=== PATIENT | female | born 1990 | race American Indian/Alaskan Native ===

== ENCOUNTER 2018-03-24 23:46 | Inpatient (IN) | payer BC ==
[2018-03-25 02:24] LABS: INR 0.96 (0.87-1.13)
[2018-03-25 02:34] LABS: Alanine Aminotransferase 94 units/L (7-56); Albumin 3.9 g/dL (3.9-5); BUN/Creatinine Ratio 9; Blood Urea Nitrogen 8 mg/dL (7-17); Hemolysis Index 12
--- NOTE | 2018-03-25 02:40 | Emergency Department Report ---
ED Fever HPI - General Chief Complaint: Fever Stated Complaint: FEVER/HEADACHE Time Seen by Provider: 03/25/18 02:24 ED Review of Systems ROS: Stated complaint: FEVER/HEADACHE Other details as noted in HPI ED Past Medical Hx - Past Medical History Previous Medical History?: Yes Hx Diabetes: Yes - Surgical History Past Surgical History?: No - Social History Smoking Status: Current Every Day Smoker Substance Use Type: None ED Physical Exam - General Limitations: No Limitations ED Course Vital Signs 03/25/18 00:30 Temperature 99.5 F Pulse Rate 99 H Blood Pressure 94/52 O2 Sat by Pulse 18 L Oximetry Critical care attestation.: If time is entered above; I have spent that time in minutes in the direct care of this critically ill patient, excluding procedure time. ED Disposition Condition: Stable Referrals: PRIMARY CARE [Primary Care Provider] - 3-5 Days
[2018-03-25 02:42] LABS: Basophils % (Auto) 0.5 % (0.0-1.8); Eosinophils % (Auto) 0.3 % (0.0-4.3); Hematocrit 37.9 % (30.3-42.9); Hemoglobin 12.2 gm/dl (10.1-14.3); Lymphocytes # (Auto) 0.4 K/mm3 (1.2-5.4); Lymphocytes % (Auto) 7.3 % (13.4-35.0); Mean Corpuscular HGB Conc 32 % (30-34); Mean Corpuscular Hemoglobin 28 pg (28-32); Mean Corpuscular Volume 87 fl (79-97); Monocytes # (Auto) 0.5 K/mm3 (0.0-0.8); Monocytes % (Auto) 9.6 % (0.0-7.3); Red Blood Count 4.37 M/mm3 (3.65-5.03); Red Cell Distribution Width 16.3 % (13.2-15.2)
[2018-03-25 02:47] LABS: Platelet Count 62 K/mm3 (140-440)
[2018-03-25] MEDS ORDERED: NACL 0.9% 1000 ML IV ONE (03:16)
[2018-03-25] MEDS ORDERED: HumuLIN R IV ONE ×2 (03:17→05:29)
--- NOTE | 2018-03-25 03:56 | XRay Report ---
FINAL REPORT EXAM: XR CHEST 1V AP HISTORY: possible Sepsis TECHNIQUE: A portable semi-upright view the chest was submitted. FINDINGS: The heart size and vascularity appear normal. The lungs are clear. Pleural fluid is not seen. The bones and soft tissues do not show any acute changes. IMPRESSION: No acute cardiopulmonary process.
--- NOTE | 2018-03-25 03:59 | Emergency Department Report ---
ED Fever HPI - General Chief Complaint: Fever Stated Complaint: FEVER/HEADACHE Time Seen by Provider: 03/25/18 02:24 Source: patient, old records (no previous record) Exam Limitations: no limitations - History of Present Illness Initial Comments: 27-year-old female with a past medical history of insulin-dependent diabetes and biliary atresia (followed at [facility]) presents to the hospital with complaints of nausea, fever, generalized body aches, and headache. Patient did not take her temperature but states she felt hot. She also complains of pain chest. No complaints of vomiting, diarrhea, dysuria, or hematuria. Patient states she has recent hospital visits but this is her first visit here as per medical record review. ED Review of Systems ROS: Stated complaint: FEVER/HEADACHE Other details as noted in HPI Comment: All other systems reviewed and negative ED Past Medical Hx - Past Medical History Previous Medical History?: Yes Hx Diabetes: Yes - Surgical History Past Surgical History?: No - Social History Smoking Status: Current Every Day Smoker Substance Use Type: None ED Physical Exam - General Limitations: No Limitations - Other Other exam information: General: No limitations, patient is alert in no acute distress Head exam: Atraumatic, normocephalic Eyes exam:pupils equal reactive to light ENT: Moist mucous membrane, normal oropharynx Neck exam: Normal inspection, full range of motion, no meningismus nontender Respiratory exam: Clear to auscultation bilateral, no wheezes, rales, crackles Cardiovascular: Normal rate and rhythm, normal heart sounds Abdomen: Soft, nondistended, right upper quadrant and left lower quadrant tenderness, with normal bowel sounds, no rebound, or guarding Extremity: Full range of motion normal inspection no deformity Back: Normal Inspection, full range of motion, no tenderness Neurologic: Alert, oriented x3, cranial nerves intact, no motor or sensory deficit Psychiatric: normal affect, normal mood Skin: Warm, dry, intact ED Course Vital Signs 03/25/18 03/25/18 03/25/18 00:03 00:30 03:34 Temperature 102.2 F H 99.5 F Pulse Rate 102 H 99 H Respiratory 16 Rate Blood Pressure 81/41 94/52 Blood Pressure [Left] O2 Sat by Pulse 97 18 L 99 Oximetry 03/25/18 04:03 Temperature 100.1 F H Pulse Rate 100 H Respiratory 18 Rate Blood Pressure Blood Pressure 95/59 [Left] O2 Sat by Pulse 100 Oximetry ED Medical Decision Making - Lab Data Result diagrams: 03/25/18 00:58 03/25/18 00:58 Lab Results 03/25/18 03/25/18 03/25/18 Range/Units 00:58 00:58 00:58 WBC 5.4 (4.5-11.0) K/mm3 RBC 4.37 (3.65-5.03) M/mm3 Hgb 12.2 (10.1-14.3) gm/dl Hct 37.9 (30.3-42.9) % MCV 87 (79-97) fl MCH 28 (28-32) pg MCHC 32 (30-34) % RDW 16.3 H (13.2-15.2) % Plt Count 62 L (140-440) K/mm3 Lymph % (Auto) 7.3 L (13.4-35.0) % [place] % (Auto) 9.6 H (0.0-7.3) % Eos % (Auto) 0.3 (0.0-4.3) % Baso % (Auto) 0.5 (0.0-1.8) % Lymph # 0.4 L (1.2-5.4) K/mm3 [place] # 0.5 (0.0-0.8) K/mm3 Eos # 0.0 (0.0-0.4) K/mm3 Baso # 0.0 (0.0-0.1) K/mm3 Seg Neutrophils % 82.3 H (40.0-70.0) % Seg Neutrophils # 4.4 (1.8-7.7) K/mm3 PT 13.3 (12.2-14.9) Sec. INR 0.96 (0.87-1.13) VBG pH (7.320-7.420) Sodium 135 L (137-145) mmol/L Potassium 4.1 (3.6-5.0) mmol/L Chloride 93.1 L (98-107) mmol/L Carbon Dioxide 20 L (22-30) mmol/L Anion Gap 26 mmol/L BUN 8 (7-17) mg/dL Creatinine 0.9 (0.7-1.2) mg/dL Estimated GFR > 60 ml/min BUN/Creatinine Ratio 9 % Glucose 406 H (65-100) mg/dL Lactic Acid (0.7-2.0) mmol/L Calcium 9.0 (8.4-10.2) mg/dL Total Bilirubin 3.30 H (0.1-1.2) mg/dL AST 113 H (5-40) units/L ALT 94 H (7-56) units/L Alkaline Phosphatase 437 H (35-129) units/L Ammonia (25-60) umol/L Total Protein 8.7 H (6.3-8.2) g/dL Albumin 3.9 (3.9-5) g/dL Albumin/Globulin Ratio 0.8 % HCG, Qual (Negative) 03/25/18 03/25/18 03/25/18 Range/Units 00:58 00:58 00:58 WBC (4.5-11.0) K/mm3 RBC (3.65-5.03) M/mm3 Hgb (10.1-14.3) gm/dl Hct (30.3-42.9) % MCV (79-97) fl MCH (28-32) pg MCHC (30-34) % RDW (13.2-15.2) % Plt Count (140-440) K/mm3 Lymph % (Auto) (13.4-35.0) % [place] % (Auto) (0.0-7.3) % Eos % (Auto) (0.0-4.3) % Baso % (Auto) (0.0-1.8) % Lymph # (1.2-5.4) K/mm3 [place] # (0.0-0.8) K/mm3 Eos # (0.0-0.4) K/mm3 Baso # (0.0-0.1) K/mm3 Seg Neutrophils % (40.0-70.0) % Seg Neutrophils # (1.8-7.7) K/mm3 PT (12.2-14.9) Sec. INR (0.87-1.13) VBG pH 7.351 (7.320-7.420) Sodium (137-145) mmol/L Potassium (3.6-5.0) mmol/L Chloride (98-107) mmol/L Carbon Dioxide (22-30) mmol/L Anion Gap mmol/L BUN (7-17) mg/dL Creatinine (0.7-1.2) mg/dL Estimated GFR ml/min BUN/Creatinine Ratio % Glucose (65-100) mg/dL Lactic Acid 2.50 H* (0.7-2.0) mmol/L Calcium (8.4-10.2) mg/dL Total Bilirubin (0.1-1.2) mg/dL AST (5-40) units/L ALT (7-56) units/L Alkaline Phosphatase (35-129) units/L Ammonia (25-60) umol/L Total Protein (6.3-8.2) g/dL Albumin (3.9-5) g/dL Albumin/Globulin Ratio % HCG, Qual Negative (Negative) 03/25/18 03/25/18 Range/Units 03:27 03:29 WBC (4.5-11.0) K/mm3 RBC (3.65-5.03) M/mm3 Hgb (10.1-14.3) gm/dl Hct (30.3-42.9) % MCV (79-97) fl MCH (28-32) pg MCHC (30-34) % RDW (13.2-15.2) % Plt Count (140-440) K/mm3 Lymph % (Auto) (13.4-35.0) % [place] % (Auto) (0.0-7.3) % Eos % (Auto) (0.0-4.3) % Baso % (Auto) (0.0-1.8) % Lymph # (1.2-5.4) K/mm3 [place] # (0.0-0.8) K/mm3 Eos # (0.0-0.4) K/mm3 Baso # (0.0-0.1) K/mm3 Seg Neutrophils % (40.0-70.0) % Seg Neutrophils # (1.8-7.7) K/mm3 PT (12.2-14.9) Sec. INR (0.87-1.13) VBG pH (7.320-7.420) Sodium (137-145) mmol/L Potassium (3.6-5.0) mmol/L Chloride (98-107) mmol/L Carbon Dioxide (22-30) mmol/L Anion Gap mmol/L BUN (7-17) mg/dL Creatinine (0.7-1.2) mg/dL Estimated GFR ml/min BUN/Creatinine Ratio % Glucose (65-100) mg/dL Lactic Acid 2.20 H* (0.7-2.0) mmol/L Calcium (8.4-10.2) mg/dL Total Bilirubin (0.1-1.2) mg/dL AST (5-40) units/L ALT (7-56) units/L Alkaline Phosphatase (35-129) units/L Ammonia 30.0 (25-60) umol/L Total Protein (6.3-8.2) g/dL Albumin (3.9-5) g/dL Albumin/Globulin Ratio % HCG, Qual (Negative) - EKG Data -: EKG Interpreted by Ut EKG shows normal: sinus rhythm, axis (qrs 30), QRS complexes (qrsd 82), ST-T waves (no stemi/t inv) Rate: tachycardia (101) - EKG Data When compared to previous EKG there are: previous EKG unavailable - Radiology Data Radiology results: report reviewed FINAL REPORT EXAM: XR CHEST 1V AP HISTORY: possible Sepsis TECHNIQUE: A portable semi-upright view the chest was submitted. FINDINGS: The heart size and vascularity appear normal. The lungs are clear. Pleural fluid is not seen. The bones and soft tissues do not show any acute changes. IMPRESSION: No acute cardiopulmonary process. FINAL REPORT EXAM: CT ABDOMEN PELVIS W CON HISTORY: abd pain, nausea, subjective fever TECHNIQUE: Routine axial imaging was obtained of the abdomen and pelvis following the intravenous injection of 100 cc of Omnipaque 300. Delayed imaging was obtained through the kidneys ureters and bladder. Sagittal and coronal reconstructions were reviewed. There are no previous studies available for comparison. FINDINGS: The lung bases do not show infiltrates or effusions. The liver is enlarged having a lobulated contour compatible with cirrhosis. There are no focal hepatic lesions. The gallbladder is not identified. The biliary tree is not dilated. The spleen is enlarged measuring 14.8 cm x 10.2 cm by 16.5 cm. There are extensive varices in the left side of the abdomen. The pancreas and adrenal glands appear normal. The kidneys enhance normally. The stomach is compressed between the enlarged liver and spleen. There is dilatation of the proximal duodenum. Duodenitis cannot be excluded. The bowel loops otherwise are normal in caliber. Free fluid is not seen. In the pelvis the uterus and bladder appear normal. The appendix is not identified. The skeletal structures do not show any acute changes. IMPRESSION: Hepatomegaly with cirrhosis. Splenomegaly. Extensive varices in the left side of the abdomen. Dilatation of the proximal duodenum. Underlying duodenitis cannot be excluded. Gallbladder not identified. - Medical Decision Making Patient overall is a poor historian presents with generalized abdominal pain and subjective fever. Positive fever documented here. CT abdomen and pelvis is significant for duodenitis and cirrhosis findings Chest x-ray without infection Urine pending at disposition Patient empirically covered with Levaquin 30 mL per KG bolus of normal saline given as per sepsis protocol. additional liter ordered elevated lactic acid Hyperglycemia Regular insulin 10 Units given ag, and mild low bicar but normal ph. awaiting urine collection for ketones additional Insulin ordered - Differential Diagnosis sepsis, viral syndrome, pneumonia, intra-abdominal infection, UTI Critical Care Time: No Critical care attestation.: If time is entered above; I have spent that time in minutes in the direct care of this critically ill patient, excluding procedure time. ED Disposition Clinical Impression: Fever, Biliary atresia, Insulin dependent diabetes mellitus, Thrombocytopenia, Liver cirrhosis, Hyperglycemia, Elevated lactic acid level Disposition: 09 OP ADMIT IP TO THIS HOSP Is pt being admited?: Yes Condition: Stable Time of Disposition: 05:04 (Dr Hansen/hospitalist)
--- NOTE | 2018-03-25 04:20 | Cat Scan Report ---
FINAL REPORT EXAM: CT ABDOMEN PELVIS W CON HISTORY: abd pain, nausea, subjective fever TECHNIQUE: Routine axial imaging was obtained of the abdomen and pelvis following the intravenous injection of 100 cc of Omnipaque 300. Delayed imaging was obtained through the kidneys ureters and bladder. Sagittal and coronal reconstructions were reviewed. There are no previous studies available for comparison. FINDINGS: The lung bases do not show infiltrates or effusions. The liver is enlarged having a lobulated contour compatible with cirrhosis. There are no focal hepatic lesions. The gallbladder is not identified. The biliary tree is not dilated. The spleen is enlarged measuring 14.8 cm x 10.2 cm by 16.5 cm. There are extensive varices in the left side of the abdomen. The pancreas and adrenal glands appear normal. The kidneys enhance normally. The stomach is compressed between the enlarged liver and spleen. There is dilatation of the proximal duodenum. Duodenitis cannot be excluded. The bowel loops otherwise are normal in caliber. Free fluid is not seen. In the pelvis the uterus and bladder appear normal. The appendix is not identified. The skeletal structures do not show any acute changes. IMPRESSION: Hepatomegaly with cirrhosis. Splenomegaly. Extensive varices in the left side of the abdomen. Dilatation of the proximal duodenum. Underlying duodenitis cannot be excluded. Gallbladder not identified.
[2018-03-25] MEDS ORDERED: LEVAQUIN 750MG/150ML 750 MG/150 ML BAG IV ONE (05:01)
[2018-03-25 05:37] LABS: Bacteria,Urine 2+ /HPF (Negative); Bilirubin,Urine NEG (Negative); Blood,Urine SM (Negative); Color,Urine Yellow (Yellow); Mucus,Urine FEW /HPF; Urobilinogen,Urine < 2.0 mg/dL (<2.0)
[2018-03-25] MEDS ORDERED: MOTRIN PO PRN (05:48)
[2018-03-25] MEDS ORDERED: SODIUM CHLORIDE FLUSH SYRINGE 10 ML IV PRN (05:48)
[2018-03-25] MEDS ORDERED: MORPHINE IV PRN (05:48)
[2018-03-25] MEDS ORDERED: NACL 0.9% 1000 ML 1,000 ML IV ONE (05:53)
[2018-03-25] MEDS ORDERED: D50W (25GM) Syringe IV PRN (05:53)
--- NOTE | 2018-03-25 06:01 | History and Physical Report ---
History of Present Illness Date of examination: 03/25/18 Date of admission: 03/25/18 Chief complaint: Fever History of present illness: Patient is a 27 year old -[place] female with history of cirrhosis of the liver, biliary atresia and diabetes mellitus type 1 who presented to the ED on account of 1 day history of fever with chills. She has associated generalized body aches, midsternal chest pain radiating to the left, diaphoresis , palpitation, headaches, nausea with vomiting, generalized abdomen pain, diarrhea and dizziness. She denies cough, shortness of breath, leg swelling, orthopnea or PND. No syncope or loss of consciousness. Past History Past Medical History: diabetes (type 1), GERD, other (biliary atresia, cirrhosis , lactose intolerance) Past Surgical History: Other (kasai procedure) Social history: smoking (5 years history of cigarette smoking. She smokes marijuana daily but denies alcohol or other illicit drug use) Family history: diabetes Medications and Allergies Allergies Allergy/AdvReac Type Severity Reaction Status Date / Time ceftriaxone [From Rocephin] Allergy Itching Verified 03/25/18 00:33 Active Meds: Active Medications Dextrose (D50w (25gm) Syringe) 50 ml IV PRN PRN PRN Reason: Hypoglycemia Famotidine (Pepcid) 20 mg IV BID ANGELINA Levofloxacin/Dextrose (Levaquin 750mg/150ml) 750 mg in 150 mls @ 100 mls/hr IV ONCE ONE Stop: 03/25/18 06:30 Levofloxacin/Dextrose (Levaquin 750mg/150ml) 750 mg in 150 mls @ 100 mls/hr IV Q24HR ANGELINA; Protocol Metronidazole (Flagyl 500 Mg/100 Ml) 500 mg in 100 mls @ 100 mls/hr IV Q8HR ANGELINA ; Protocol Sodium Chloride (Nacl 0.9% 1000 Ml) 1,000 mls @ 125 mls/hr IV DIRECT ANGELINA Sodium Chloride (Nacl 0.9% 1000 Ml) 1,000 mls @ 999 mls/hr IV BOLUS ONE Stop: 03/25/18 06:53 Ibuprofen (Motrin) 600 mg PO Q6H PRN PRN Reason: Pain, Mild (1-3) Insulin Glargine (Lantus) 20 units SUB-Q BID ANGELINA Insulin Human Lispro (Humalog) 0 unit SUB-Q ACHS ANGELINA; Protocol Morphine Sulfate (Morphine) 2 mg IV Q4H PRN PRN Reason: Pain, Moderate (4-6) Ondansetron HCl (Zofran) 4 mg IV Q4H PRN PRN Reason: Nausea And Vomiting Sodium Chloride (Sodium Chloride Flush Syringe 10 Ml) 10 ml IV BID ANGELINA Sodium Chloride (Sodium Chloride Flush Syringe 10 Ml) 10 ml IV PRN PRN PRN Reason: LINE FLUSH Zolpidem Tartrate (Ambien) 5 mg PO QHS PRN PRN Reason: Insomnia Review of Systems All systems: negative (except as documented in the HPI, all other systems were reviewed and negative) Exam - Constitutional Vitals: Temp Pulse Resp BP Pulse Ox 100.1 F H 100 H 18 95/59 100 03/25/18 04:03 03/25/18 04:03 03/25/18 04:03 03/25/18 04:03 03/25/18 04:03 General appearance: Present: no acute distress, other (patient was having chills ) - EENT Eyes: Present: PERRL, EOM intact ENT: hearing intact, clear oral mucosa - Neck Neck: Present: supple, normal ROM - Respiratory Respiratory effort: normal Respiratory: bilateral: CTA - Cardiovascular Rhythm: other (tachycardia with regular rhythm) Heart Sounds: Present: S1 & S2. Absent: rub, click - Extremities Extremities: pulses symmetrical Extremity abnormal: edema (with tenderness in BLE) - Abdominal General gastrointestinal: Present: soft, tender (generalized), non-distended, normal bowel sounds Female genitourinary: Present: normal - Integumentary Integumentary: Present: clear, warm, dry - Musculoskeletal Musculoskeletal: gait normal, strength equal bilaterally - Psychiatric Psychiatric: appropriate mood/affect, intact judgment & insight - Neurologic Neurologic: CNII-XII intact, moves all extremities Results - Labs CBC & Chem 7: 03/25/18 00:58 03/25/18 00:58 Labs: Laboratory Last Values WBC 5.4 K/mm3 (4.5-11.0) 03/25/18 00:58 RBC 4.37 M/mm3 (3.65-5.03) 03/25/18 00:58 Hgb 12.2 gm/dl (10.1-14.3) 03/25/18 00:58 Hct 37.9 % (30.3-42.9) 03/25/18 00:58 MCV 87 fl (79-97) 03/25/18 00:58 MCH 28 pg (28-32) 03/25/18 00:58 MCHC 32 % (30-34) 03/25/18 00:58 RDW 16.3 % (13.2-15.2) H 03/25/18 00:58 Plt Count 62 K/mm3 (140-440) L 03/25/18 00:58 Lymph % (Auto) 7.3 % (13.4-35.0) L 03/25/18 00:58 [place] % (Auto) 9.6 % (0.0-7.3) H 03/25/18 00:58 Eos % (Auto) 0.3 % (0.0-4.3) 03/25/18 00:58 Baso % (Auto) 0.5 % (0.0-1.8) 03/25/18 00:58 Lymph # 0.4 K/mm3 (1.2-5.4) L 03/25/18 00:58 [place] # 0.5 K/mm3 (0.0-0.8) 03/25/18 00:58 Eos # 0.0 K/mm3 (0.0-0.4) 03/25/18 00:58 Baso # 0.0 K/mm3 (0.0-0.1) 03/25/18 00:58 Seg Neutrophils % 82.3 % (40.0-70.0) H 03/25/18 00:58 Seg Neutrophils # 4.4 K/mm3 (1.8-7.7) 03/25/18 00:58 PT 13.3 Sec. (12.2-14.9) 03/25/18 00:58 INR 0.96 (0.87-1.13) 03/25/18 00:58 VBG pH 7.351 (7.320-7.420) 03/25/18 00:58 Sodium 135 mmol/L (137-145) L 03/25/18 00:58 Potassium 4.1 mmol/L (3.6-5.0) 03/25/18 00:58 Chloride 93.1 mmol/L (98-107) L 03/25/18 00:58 Carbon Dioxide 20 mmol/L (22-30) L 03/25/18 00:58 Anion Gap 26 mmol/L 03/25/18 00:58 BUN 8 mg/dL (7-17) 03/25/18 00:58 Creatinine 0.9 mg/dL (0.7-1.2) 03/25/18 00:58 Estimated GFR > 60 ml/min 03/25/18 00:58 BUN/Creatinine Ratio 9 % 03/25/18 00:58 Glucose 406 mg/dL (65-100) H 03/25/18 00:58 Lactic Acid 2.20 mmol/L (0.7-2.0) H* 03/25/18 03:29 Calcium 9.0 mg/dL (8.4-10.2) 03/25/18 00:58 Total Bilirubin 3.30 mg/dL (0.1-1.2) H 03/25/18 00:58 AST 113 units/L (5-40) H 03/25/18 00:58 ALT 94 units/L (7-56) H 03/25/18 00:58 Alkaline Phosphatase 437 units/L (35-129) H 03/25/18 00:58 Ammonia 30.0 umol/L (25-60) 03/25/18 03:27 Total Protein 8.7 g/dL (6.3-8.2) H 03/25/18 00:58 Albumin 3.9 g/dL (3.9-5) 03/25/18 00:58 Albumin/Globulin Ratio 0.8 % 03/25/18 00:58 HCG, Qual Negative (Negative) 03/25/18 00:58 Urine Color Yellow (Yellow) 03/25/18 05:00 Urine Turbidity Slightly-cloudy (Clear) 03/25/18 05:00 Urine pH 5.0 (5.0-7.0) 03/25/18 05:00 Ur Specific [place] 1.033 (1.003-1.030) H 03/25/18 05:00 Urine Protein 30 mg/dl mg/dL (Negative) 03/25/18 05:00 Urine Glucose (UA) >=500 mg/dL (Negative) 03/25/18 05:00 Urine Ketones 20 mg/dL (Negative) 03/25/18 05:00 Urine Blood Sm (Negative) 03/25/18 05:00 Urine Nitrite Neg (Negative) 03/25/18 05:00 Urine Bilirubin Neg (Negative) 03/25/18 05:00 Urine Urobilinogen < 2.0 mg/dL (<2.0) 03/25/18 05:00 Ur Leukocyte Esterase Neg (Negative) 03/25/18 05:00 Urine WBC (Auto) 3.0 /HPF (0.0-6.0) 03/25/18 05:00 Urine RBC (Auto) 1.0 /HPF (0.0-6.0) 03/25/18 05:00 U Epithel Cells (Auto) 1.0 /HPF (0-13.0) 03/25/18 05:00 Urine Bacteria (Auto) 2+ /HPF (Negative) 03/25/18 05:00 Urine Mucus Few /HPF 03/25/18 05:00 - Imaging and Cardiology Chest x-ray: report reviewed CT scan - abdomen: report reviewed Assessment and Plan Assessment and plan: Severe sepsis, probably secondary to duodenitis -We will place patient on IV antibiotics with levofloxacin and Flagyl -Follow up blood culture results DM1 with hyperglycemia -On IV fluid, Lantus and SSI -Will check hemoglobin A1c level Cirrhosis of the liver with extensive varices per imaging -Patient will need GI consult GERD -On famotidine History of biliary atresia -For outpatient follow-up Prophylaxis -DVT prophylaxis with SCD due to high risk for bleed and GI prophylaxis with famotidine Time spent: 38 minutes Disposition: Discharge will depend on clinical course
[2018-03-25] MEDS: FLAGYL 500 MG/100 ML 500 MG/100 ML BAG IV SCH ×3 (06:48→20:59)
[2018-03-25] MEDS: ZOFRAN IV PRN (06:48)
[2018-03-25] MEDS ORDERED: NACL 0.9% 1000 ML 1,000 ML ONE (08:04)
--- NOTE | 2018-03-25 08:32 | Progress Note ---
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 * CT abd/pelvis with IV contrast IMPRESSION: Hepatomegaly with cirrhosis. Splenomegaly. Extensive varices in the left side of the abdomen. Dilatation of the proximal duodenum. Underlying duodenitis cannot be excluded. Gallbladder not identified. * pCXR reported as no acute cardiopulmonary process Sepsis probably secondary to duodenitis: treat with levaquin and flagyl DM1 with hyperglycemia: IV fluid, Lantus and SSI, check hemoglobin A1c level Cirrhosis of the liver with extensive varices per imaging: consulted GI Tobacco dependency: school guidance counselor on stopping, offered nicotine patch, she will consider GERD On famotidine Biliary atresia, possible Cholangitis: treat with Levaquin for now, GI is following DVT prophylaxis with SCD due to high risk for bleed and GI prophylaxis with famotidine Medical non-compliance with Noncompliant with diabetic diet and f/u with Liver transplant center: school guidance counselor on compliance Daily Marijuana usage: counselling done History Interval history: Patient was seen and examined. Follow-up on current diagnosis of fevers, still present. Overnight uneventful. Patient denies any chest pain, shortness breath, nausea/vomiting or severe headaches. Imaging, nursing note, chart, labs and old chart reviewed. Discussed with patient. Hospitalist Physical - Physical exam Narrative exam: GEN: WDWN, NAD, Awake, Alert, Orientated HEENT: NCAT, EOMI, PERRL, OP Clear NECK: supple, no adenopathy, no thyromegaly, no JVD CVS/HEART: RRR, normal S1S2, pulses present bilaterally CHEST/LUNGS: CTA B, Symmetrical chest expansion, good air entry bilaterally GI/Abdomen: soft, NTND, good bowel sounds, no guarding or rebound /Bladder: no suprapubic tenderness, no CVA or paraspinal tenderness EXT/Skin: no c/c/e, no obvious rash MSK: FROM x 4 Neuro: CN 2-12 grossly intact, no new focal deficits Psych: calm - Constitutional Vitals: Temp Pulse Resp BP Pulse Ox 100.8 F H 100 H 18 95/59 100 03/25/18 06:51 03/25/18 04:03 03/25/18 04:03 03/25/18 04:03 03/25/18 04:03 General appearance: Present: no acute distress, other (patient was having chills ) Results - Labs CBC & Chem 7: 03/25/18 00:58 03/25/18 00:58 Labs: Laboratory Last Values WBC 5.4 K/mm3 (4.5-11.0) 03/25/18 00:58 RBC 4.37 M/mm3 (3.65-5.03) 03/25/18 00:58 Hgb 12.2 gm/dl (10.1-14.3) 03/25/18 00:58 Hct 37.9 % (30.3-42.9) 03/25/18 00:58 MCV 87 fl (79-97) 03/25/18 00:58 MCH 28 pg (28-32) 03/25/18 00:58 MCHC 32 % (30-34) 03/25/18 00:58 RDW 16.3 % (13.2-15.2) H 03/25/18 00:58 Plt Count 62 K/mm3 (140-440) L 03/25/18 00:58 Lymph % (Auto) 7.3 % (13.4-35.0) L 03/25/18 00:58 [place] % (Auto) 9.6 % (0.0-7.3) H 03/25/18 00:58 Eos % (Auto) 0.3 % (0.0-4.3) 03/25/18 00:58 Baso % (Auto) 0.5 % (0.0-1.8) 03/25/18 00:58 Lymph # 0.4 K/mm3 (1.2-5.4) L 03/25/18 00:58 [place] # 0.5 K/mm3 (0.0-0.8) 03/25/18 00:58 Eos # 0.0 K/mm3 (0.0-0.4) 03/25/18 00:58 Baso # 0.0 K/mm3 (0.0-0.1) 03/25/18 00:58 Seg Neutrophils % 82.3 % (40.0-70.0) H 03/25/18 00:58 Seg Neutrophils # 4.4 K/mm3 (1.8-7.7) 03/25/18 00:58 PT 13.3 Sec. (12.2-14.9) 03/25/18 00:58 INR 0.96 (0.87-1.13) 03/25/18 00:58 VBG pH 7.351 (7.320-7.420) 03/25/18 00:58 Sodium 135 mmol/L (137-145) L 03/25/18 00:58 Potassium 4.1 mmol/L (3.6-5.0) 03/25/18 00:58 Chloride 93.1 mmol/L (98-107) L 03/25/18 00:58 Carbon Dioxide 20 mmol/L (22-30) L 03/25/18 00:58 Anion Gap 26 mmol/L 03/25/18 00:58 BUN 8 mg/dL (7-17) 03/25/18 00:58 Creatinine 0.9 mg/dL (0.7-1.2) 03/25/18 00:58 Estimated GFR > 60 ml/min 03/25/18 00:58 BUN/Creatinine Ratio 9 % 03/25/18 00:58 Glucose 406 mg/dL (65-100) H 03/25/18 00:58 POC Glucose 342 (70-105) H 03/25/18 07:36 Lactic Acid 2.30 mmol/L (0.7-2.0) H* 03/25/18 07:19 Calcium 9.0 mg/dL (8.4-10.2) 03/25/18 00:58 Total Bilirubin 3.30 mg/dL (0.1-1.2) H 03/25/18 00:58 AST 113 units/L (5-40) H 03/25/18 00:58 ALT 94 units/L (7-56) H 03/25/18 00:58 Alkaline Phosphatase 437 units/L (35-129) H 03/25/18 00:58 Ammonia 30.0 umol/L (25-60) 03/25/18 03:27 Troponin T < 0.010 ng/mL (0.00-0.029) 03/25/18 06:07 Total Protein 8.7 g/dL (6.3-8.2) H 03/25/18 00:58 Albumin 3.9 g/dL (3.9-5) 03/25/18 00:58 Albumin/Globulin Ratio 0.8 % 03/25/18 00:58 HCG, Qual Negative (Negative) 03/25/18 00:58 Urine Color Yellow (Yellow) 03/25/18 05:00 Urine Turbidity Slightly-cloudy (Clear) 03/25/18 05:00 Urine pH 5.0 (5.0-7.0) 03/25/18 05:00 Ur Specific [place] 1.033 (1.003-1.030) H 03/25/18 05:00 Urine Protein 30 mg/dl mg/dL (Negative) 03/25/18 05:00 Urine Glucose (UA) >=500 mg/dL (Negative) 03/25/18 05:00 Urine Ketones 20 mg/dL (Negative) 03/25/18 05:00 Urine Blood Sm (Negative) 03/25/18 05:00 Urine Nitrite Neg (Negative) 03/25/18 05:00 Urine Bilirubin Neg (Negative) 03/25/18 05:00 Urine Urobilinogen < 2.0 mg/dL (<2.0) 03/25/18 05:00 Ur Leukocyte Esterase Neg (Negative) 03/25/18 05:00 Urine WBC (Auto) 3.0 /HPF (0.0-6.0) 03/25/18 05:00 Urine RBC (Auto) 1.0 /HPF (0.0-6.0) 03/25/18 05:00 U Epithel Cells (Auto) 1.0 /HPF (0-13.0) 03/25/18 05:00 Urine Bacteria (Auto) 2+ /HPF (Negative) 03/25/18 05:00 Urine Mucus Few /HPF 03/25/18 05:00
[2018-03-25] MEDS: HumaLOG SUB-Q SCH ×4 (08:43→21:12)
[2018-03-25] MEDS ORDERED: HumuLIN R ONE (08:52)
[2018-03-25] MEDS ORDERED: PEPCID IV SCH (10:00)
[2018-03-25] MEDS: LANTUS SUB-Q SCH ×2 (10:08→20:59)
--- NOTE | 2018-03-25 11:16 | Gastroenterology Consultation ---
History of Present Illness - Reason for Consult Consult date: 03/25/18 Cirrhosis Requesting physician: FERNANDO WESTFALL - History of Present Illness The patient is a 27 yo female admitted with fevers; we are consulted for an abnormal CT and hx of cirrhosis. She was dx with biliary atresia at , and has had a Kasai procedure. She has known cirrhosis, and was supposed to f/u with [facility] (as an adult; has seen [facility] as a child) but is noncompliant (out of insulin at home, noncompliant with diabetic diet, no medical f/u, smoking tobacco and MJ daily). She was admitted with fevers and nausea, vomiting, abdominal pain, and diarrhea. She had a CT that showed an abnormal duodenal loop (likely Kasai procedure), but was otherwise notable for cirrhosis only. She has no N/V on a full liquid diet now, and is requesting solid food. She has no severe cough, and a CXray (and UA) were unremarkable. Past History Past Medical History: diabetes (type 1), GERD, other (biliary atresia, cirrhosis , medical noncompliance) Past Surgical History: Other (kasai procedure) Social history: smoking (5 years history of cigarette smoking. She smokes marijuana daily but denies alcohol or other illicit drug use), other (daily MJ abuse) Family history: diabetes Medications and Allergies Allergies Allergy/AdvReac Type Severity Reaction Status Date / Time ceftriaxone [From Rocephin] Allergy Itching Verified 03/25/18 00:33 Active Meds: Active Medications Dextrose (D50w (25gm) Syringe) 50 ml IV PRN PRN PRN Reason: Hypoglycemia Levofloxacin/Dextrose (Levaquin 750mg/150ml) 750 mg in 150 mls @ 100 mls/hr IV Q24HR ANGELINA; Protocol Metronidazole (Flagyl 500 Mg/100 Ml) 500 mg in 100 mls @ 100 mls/hr IV Q8HR ANGELINA ; Protocol Last Admin: 03/25/18 06:48 Dose: 100 mls/hr Sodium Chloride (Nacl 0.9% 1000 Ml) 1,000 mls @ 125 mls/hr IV DIRECT ANGELINA Insulin Glargine (Lantus) 20 units SUB-Q BID ANGELINA Last Admin: 03/25/18 10:08 Dose: 20 units Insulin Human Lispro (Humalog) 0 unit SUB-Q ACHS ANGELINA; Protocol Last Admin: 03/25/18 08:43 Dose: 6 unit Morphine Sulfate (Morphine) 1 mg IV Q6H PRN PRN Reason: Pain, Moderate (4-6) if NPO Ondansetron HCl (Zofran) 4 mg IV Q4H PRN PRN Reason: Nausea And Vomiting Last Admin: 03/25/18 06:48 Dose: 4 mg Pantoprazole Sodium (Protonix) 40 mg IV BID ANGELINA Sodium Chloride (Sodium Chloride Flush Syringe 10 Ml) 10 ml IV BID ANGELINA Sodium Chloride (Sodium Chloride Flush Syringe 10 Ml) 10 ml IV PRN PRN PRN Reason: LINE FLUSH Zolpidem Tartrate (Ambien) 5 mg PO QHS PRN PRN Reason: Insomnia I HAVE REVIEWED AND RECONCILED MEDICATIONS Review of Systems - Review of Systems All systems: negative (as noted in the HPI) Exam - Constitutional Vital Signs: Temp Pulse Resp BP Pulse Ox 100.8 F H 99 H 9 L 112/71 100 03/25/18 06:51 03/25/18 09:00 03/25/18 09:00 03/25/18 09:00 03/25/18 09:00 General appearance: no acute distress, disheveled - EENT Eyes: PERRL, scleral icterus ENT: hearing intact, clear oral mucosa, no thrush - Neck Neck: supple, normal ROM - Respiratory Respiratory effort: normal Respiratory: bilateral: CTA - Cardiovascular Heart Rate: 100 Rhythm: regular Heart Sounds: Present: S1 & S2 Extremities: no ischemia, No edema - Gastrointestinal General gastrointestinal: Present: soft, non-tender, non-distended - Integumentary Integumentary: Present: clear, warm, dry - Neurologic Neurological: alert and oriented x3 - Labs CBC & Chem 7: 03/25/18 00:58 03/25/18 00:58 Lab Results: Laboratory Results - last 24 hr 03/25/18 03/25/18 03/25/18 00:58 00:58 00:58 WBC 5.4 RBC 4.37 Hgb 12.2 Hct 37.9 MCV 87 MCH 28 MCHC 32 RDW 16.3 H Plt Count 62 L Lymph % (Auto) 7.3 L [place] % (Auto) 9.6 H Eos % (Auto) 0.3 Baso % (Auto) 0.5 Lymph # 0.4 L [place] # 0.5 Eos # 0.0 Baso # 0.0 Seg Neutrophils % 82.3 H Seg Neutrophils # 4.4 PT 13.3 INR 0.96 VBG pH Sodium 135 L Potassium 4.1 Chloride 93.1 L Carbon Dioxide 20 L Anion Gap 26 BUN 8 Creatinine 0.9 Estimated GFR > 60 BUN/Creatinine Ratio 9 Glucose 406 H POC Glucose Lactic Acid Calcium 9.0 Total Bilirubin 3.30 H AST 113 H ALT 94 H Alkaline Phosphatase 437 H Ammonia Troponin T Total Protein 8.7 H Albumin 3.9 Albumin/Globulin Ratio 0.8 HCG, Qual Urine Color Urine Turbidity Urine pH Ur Specific [place] Urine Protein Urine Glucose (UA) Urine Ketones Urine Blood Urine Nitrite Urine Bilirubin Urine Urobilinogen Ur Leukocyte Esterase Urine WBC (Auto) Urine RBC (Auto) U Epithel Cells (Auto) Urine Bacteria (Auto) Urine Mucus 03/25/18 03/25/18 03/25/18 00:58 00:58 00:58 WBC RBC Hgb Hct MCV MCH MCHC RDW Plt Count Lymph % (Auto) [place] % (Auto) Eos % (Auto) Baso % (Auto) Lymph # [place] # Eos # Baso # Seg Neutrophils % Seg Neutrophils # PT INR VBG pH 7.351 Sodium Potassium Chloride Carbon Dioxide Anion Gap BUN Creatinine Estimated GFR BUN/Creatinine Ratio Glucose POC Glucose Lactic Acid 2.50 H* Calcium Total Bilirubin AST ALT Alkaline Phosphatase Ammonia Troponin T Total Protein Albumin Albumin/Globulin Ratio HCG, Qual Negative Urine Color Urine Turbidity Urine pH Ur Specific [place] Urine Protein Urine Glucose (UA) Urine Ketones Urine Blood Urine Nitrite Urine Bilirubin Urine Urobilinogen Ur Leukocyte Esterase Urine WBC (Auto) Urine RBC (Auto) U Epithel Cells (Auto) Urine Bacteria (Auto) Urine Mucus 03/25/18 03/25/18 03/25/18 03:27 03:29 05:00 WBC RBC Hgb Hct MCV MCH MCHC RDW Plt Count Lymph % (Auto) [place] % (Auto) Eos % (Auto) Baso % (Auto) Lymph # [place] # Eos # Baso # Seg Neutrophils % Seg Neutrophils # PT INR VBG pH Sodium Potassium Chloride Carbon Dioxide Anion Gap BUN Creatinine Estimated GFR BUN/Creatinine Ratio Glucose POC Glucose Lactic Acid 2.20 H* Calcium Total Bilirubin AST ALT Alkaline Phosphatase Ammonia 30.0 Troponin T Total Protein Albumin Albumin/Globulin Ratio HCG, Qual Urine Color Yellow Urine Turbidity Slightly-cloudy Urine pH 5.0 Ur Specific [place] 1.033 H Urine Protein 30 mg/dl Urine Glucose (UA) >=500 Urine Ketones 20 Urine Blood Sm Urine Nitrite Neg Urine Bilirubin Neg Urine Urobilinogen < 2.0 Ur Leukocyte Esterase Neg Urine WBC (Auto) 3.0 Urine RBC (Auto) 1.0 U Epithel Cells (Auto) 1.0 Urine Bacteria (Auto) 2+ Urine Mucus Few 03/25/18 03/25/18 03/25/18 05:12 06:07 06:07 WBC RBC Hgb Hct MCV MCH MCHC RDW Plt Count Lymph % (Auto) [place] % (Auto) Eos % (Auto) Baso % (Auto) Lymph # [place] # Eos # Baso # Seg Neutrophils % Seg Neutrophils # PT INR VBG pH Sodium Potassium Chloride Carbon Dioxide Anion Gap BUN Creatinine Estimated GFR BUN/Creatinine Ratio Glucose POC Glucose 328 H Lactic Acid 3.80 H* Calcium Total Bilirubin AST ALT Alkaline Phosphatase Ammonia Troponin T < 0.010 Total Protein Albumin Albumin/Globulin Ratio HCG, Qual Urine Color Urine Turbidity Urine pH Ur Specific [place] Urine Protein Urine Glucose (UA) Urine Ketones Urine Blood Urine Nitrite Urine Bilirubin Urine Urobilinogen Ur Leukocyte Esterase Urine WBC (Auto) Urine RBC (Auto) U Epithel Cells (Auto) Urine Bacteria (Auto) Urine Mucus 03/25/18 03/25/18 03/25/18 07:19 07:36 09:44 WBC RBC Hgb Hct MCV MCH MCHC RDW Plt Count Lymph % (Auto) [place] % (Auto) Eos % (Auto) Baso % (Auto) Lymph # [place] # Eos # Baso # Seg Neutrophils % Seg Neutrophils # PT INR VBG pH Sodium Potassium Chloride Carbon Dioxide Anion Gap BUN Creatinine Estimated GFR BUN/Creatinine Ratio Glucose POC Glucose 342 H Lactic Acid 2.30 H* 2.90 H* Calcium Total Bilirubin AST ALT Alkaline Phosphatase Ammonia Troponin T Total Protein Albumin Albumin/Globulin Ratio HCG, Qual Urine Color Urine Turbidity Urine pH Ur Specific [place] Urine Protein Urine Glucose (UA) Urine Ketones Urine Blood Urine Nitrite Urine Bilirubin Urine Urobilinogen Ur Leukocyte Esterase Urine WBC (Auto) Urine RBC (Auto) U Epithel Cells (Auto) Urine Bacteria (Auto) Urine Mucus Assessment and Plan - Patient Problems (1) Abnormal CT of the abdomen Current Visit: Yes Status: Acute Plan to address problem: - Dilated loop of duodenum/abnormal appearance is normal after Kasai procedure. No vomiting to suggest outlet obstruction. - OK to advance to regular diet. (2) Biliary atresia Current Visit: Yes Status: Acute Plan to address problem: - Cirrhosis with biliary atresia/s-p Kasai. - No ascites or encephalopathy. - Varices on CT, but no hx of GI bleeding. - Concern for cholangitis given fevers. (3) Fever Current Visit: Yes Status: Acute Plan to address problem: - No signs of UTI or pneumonia; no ascites to suggest SBP. - May have gastroenteritis (levoflox and flagyl should cover). - May have cholangitis from biliary atresia; high dose (levofloxacin 750) should cover. Will monitor cultures. - Note made of elevated lactic acid, but abdomen benign, no worrisome findings on CT, tolerating liquid diet; will monitor. (4) Medical non-compliance Current Visit: Yes Status: Acute Plan to address problem: - Noncompliant with diabetic diet or with insulin. - Noncompliant with f/u with Liver transplant center. - Daily tobacco and MJ.
[2018-03-25] MEDS: MORPHINE IV PRN ×2 (11:50→19:15)
[2018-03-25] MEDS: NACL 0.9% 1000 ML 1,000 ML IV SCH ×2 (11:56→20:40)
[2018-03-25] MEDS: PROTONIX IV SCH ×2 (12:20→20:59)
[2018-03-25] MEDS: SODIUM CHLORIDE FLUSH SYRINGE 10 ML IV SCH ×2 (12:20→21:04)
[2018-03-25] MEDS ORDERED: TYLENOL PO PRN (12:24)
[2018-03-25] MEDS ORDERED: MOTRIN PO ONE (14:32)
[2018-03-25] MEDS ORDERED: AMBIEN PO PRN (22:00)
[2018-03-26] MEDS: MORPHINE IV PRN ×3 (03:31→21:00)
[2018-03-26] MEDS: ZOFRAN IV PRN ×2 (03:35→22:46)
[2018-03-26] MEDS: SODIUM CHLORIDE FLUSH SYRINGE 10 ML IV SCH ×4 (03:37→22:47)
[2018-03-26] MEDS: NACL 0.9% 1000 ML 1,000 ML IV SCH ×2 (05:05→19:31)
[2018-03-26] MEDS: FLAGYL 500 MG/100 ML 500 MG/100 ML BAG IV SCH ×3 (05:05→21:01)
[2018-03-26 06:51] LABS: Basophils % (Auto) 0.3 % (0.0-1.8); Eosinophils # (Auto) 0.1 K/mm3 (0.0-0.4); Eosinophils % (Auto) 1.2 % (0.0-4.3); Hematocrit 29.7 % (30.3-42.9); Hemoglobin 9.7 gm/dl (10.1-14.3); Lymphocytes # (Auto) 0.7 K/mm3 (1.2-5.4); Lymphocytes % (Auto) 13.2 % (13.4-35.0); Mean Corpuscular HGB Conc 33 % (30-34); Mean Corpuscular Hemoglobin 28 pg (28-32); Mean Corpuscular Volume 84 fl (79-97); Monocytes # (Auto) 0.6 K/mm3 (0.0-0.8); Monocytes % (Auto) 10.6 % (0.0-7.3); Red Blood Count 3.54 M/mm3 (3.65-5.03); Red Cell Distribution Width 15.6 % (13.2-15.2)
[2018-03-26 06:54] LABS: Platelet Count 53 K/mm3 (140-440)
[2018-03-26 07:07] LABS: Alanine Aminotransferase 51 units/L (7-56); Albumin 2.5 g/dL (3.9-5); BUN/Creatinine Ratio 10; Blood Urea Nitrogen 4 mg/dL (7-17); Calcium 7.6 mg/dL (8.4-10.2); Hemolysis Index 18
[2018-03-26] MEDS: HumaLOG SUB-Q SCH ×4 (08:54→22:48)
[2018-03-26] MEDS: LANTUS SUB-Q SCH ×2 (11:29→22:48)
[2018-03-26] MEDS: LEVAQUIN 750MG/150ML 750 MG/150 ML BAG IV SCH (11:30)
[2018-03-26] MEDS: PROTONIX IV SCH ×2 (11:30→22:46)
--- NOTE | 2018-03-26 11:46 | Gastroenterology Progress Note ---
Assessment and Plan - Patient Problems (1) Abnormal CT of the abdomen Current Visit: Yes Status: Acute Plan to address problem: - Dilated loop of duodenum/abnormal appearance is normal after Kasai procedure. No vomiting to suggest outlet obstruction. - OK to continue regular diet. (2) Biliary atresia Current Visit: Yes Status: Acute Plan to address problem: - Cirrhosis with biliary atresia/s-p Kasai. - No ascites or encephalopathy. - Varices on CT, but no hx of GI bleeding. - Concern for cholangitis given fevers but improving; would continue abx x 10 days. OK to d/c when stable. (3) Fever Current Visit: Yes Status: Acute Plan to address problem: - No signs of UTI or pneumonia; no ascites to suggest SBP. - May have gastroenteritis (levoflox and flagyl should cover). - May have cholangitis from biliary atresia; high dose (levofloxacin 750) should cover. Will monitor cultures. Improved; would continue abx x 10 days. - Note made of elevated lactic acid, but abdomen benign, no worrisome findings on CT, tolerating liquid diet; resolved within 24 hours. (4) Medical non-compliance Current Visit: Yes Status: Acute Plan to address problem: - Noncompliant with diabetic diet or with insulin. - Noncompliant with f/u with Liver transplant center. - Daily tobacco and MJ. Subjective Date of service: 03/26/18 Principal diagnosis: Fever, cirrhosis Interval history: The patient is tolerating a regular diet, without vomiting. Her fevers are improved, but she still feels lethargic and nauseated. Objective - Constitutional Vitals: Temp Pulse Resp BP Pulse Ox 99.7 F H 85 16 94/55 100 03/26/18 05:26 03/26/18 05:26 03/26/18 05:26 03/26/18 05:26 03/26/18 05:26 General appearance: no acute distress - Respiratory Respiratory effort: normal Respiratory: bilateral: CTA - Cardiovascular Rhythm: regular Heart Sounds: Present: S1 & S2 - Gastrointestinal General gastrointestinal: Present: soft, non-tender, non-distended - Labs CBC & Chem 7: 03/26/18 06:13 03/26/18 06:13 Labs: Laboratory Results - last 24 hr 03/25/18 03/25/18 03/25/18 11:24 12:34 15:47 WBC RBC Hgb Hct MCV MCH MCHC RDW Plt Count Lymph % (Auto) [place] % (Auto) Eos % (Auto) Baso % (Auto) Lymph # [place] # Eos # Baso # Seg Neutrophils % Seg Neutrophils # Sodium Potassium Chloride Carbon Dioxide Anion Gap BUN Creatinine Estimated GFR BUN/Creatinine Ratio Glucose POC Glucose 350 H Lactic Acid 2.10 H* 1.90 Calcium Total Bilirubin AST ALT Alkaline Phosphatase Total Protein Albumin Albumin/Globulin Ratio 03/25/18 03/25/18 03/26/18 16:51 20:46 06:13 WBC 5.3 RBC 3.54 L Hgb 9.7 L Hct 29.7 L D MCV 84 MCH 28 MCHC 33 RDW 15.6 H Plt Count 53 L Lymph % (Auto) 13.2 L [place] % (Auto) 10.6 H Eos % (Auto) 1.2 Baso % (Auto) 0.3 Lymph # 0.7 L [place] # 0.6 Eos # 0.1 Baso # 0.0 Seg Neutrophils % 74.7 H Seg Neutrophils # 4.0 Sodium Potassium Chloride Carbon Dioxide Anion Gap BUN Creatinine Estimated GFR BUN/Creatinine Ratio Glucose POC Glucose 342 H 403 H Lactic Acid Calcium Total Bilirubin AST ALT Alkaline Phosphatase Total Protein Albumin Albumin/Globulin Ratio 03/26/18 06:13 WBC RBC Hgb Hct MCV MCH MCHC RDW Plt Count Lymph % (Auto) [place] % (Auto) Eos % (Auto) Baso % (Auto) Lymph # [place] # Eos # Baso # Seg Neutrophils % Seg Neutrophils # Sodium 136 L Potassium 3.8 Chloride 106.6 Carbon Dioxide 21 L Anion Gap 12 BUN 4 L Creatinine 0.4 L D Estimated GFR > 60 BUN/Creatinine Ratio 10 Glucose 298 H POC Glucose Lactic Acid Calcium 7.6 L D Total Bilirubin 2.10 H AST 50 H ALT 51 Alkaline Phosphatase 249 H Total Protein 6.2 L D Albumin 2.5 L Albumin/Globulin Ratio 0.7
--- NOTE | 2018-03-26 12:35 | Progress Note ---
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 * CT abd/pelvis with IV contrast IMPRESSION: Hepatomegaly with cirrhosis. Splenomegaly. Extensive varices in the left side of the abdomen. Dilatation of the proximal duodenum. Underlying duodenitis cannot be excluded. Gallbladder not identified. * pCXR reported as no acute cardiopulmonary process Sepsis most likely related to left breast infection/inflammation vs probably secondary to duodenitis vs other: treat with levaquin and flagyl Left breast infection vs Mastitis vs other due to Nipple ring (pt admantly refutes that the nipple ring has anything to do with the issue, no right nipple present): I advised the patient to remove the nipple ring. DM1 with hyperglycemia: IV fluid, Lantus and SSI, check hemoglobin A1c level Cirrhosis of the liver with extensive varices per imaging: consulted GI Tobacco dependency: consumer credit counselor on stopping, offered nicotine patch, she will consider GERD On famotidine Biliary atresia, possible Cholangitis: treat with Levaquin for now, GI is following DVT prophylaxis with SCD due to high risk for bleed and GI prophylaxis with famotidine Medical non-compliance with Noncompliant with diabetic diet and f/u with Liver transplant center: consumer credit counselor on compliance Daily Marijuana usage: counselling done The persistent fever maybe related to Left breast pains, which appears to be Mastitis but will rule out abscess, ordered left breast u/s, consulted Breast Surgeon, who will see tomorrow. I advised patient to remove the nipple ring. I also advised patient to bring a sports bra from home. I will add iv Vancomycin to cover staph aureus History Interval history: Patient was seen and examined. Follow-up on current diagnosis of fevers, still present. Overnight uneventful. Patient denies any chest pain, shortness breath, nausea/vomiting or severe headaches. Imaging, nursing note, chart, labs and old chart reviewed. Discussed with patient. She is very rude, "I'm sick and tired of telling ya'll the same thing, my left breast hurts and it's swollen, I hurt all over!" Dex Soliman tried to interject but was rudely cut off. My entire visit was done while she was on the cell phone. Yesterday, she never mentioned anything to me regarding her breast and I haven't seen any documented compliant of breast pains. Hospitalist Physical - Physical exam Narrative exam: GEN: WDWN, NAD, Awake, Alert, Orientated x 3 HEENT: NCAT, EOMI, PERRL, OP Clear NECK: supple, no adenopathy, no thyromegaly, no JVD CVS/HEART: RRR, normal S1S2, pulses present bilaterally CHEST/LUNGS: CTA B, Symmetrical chest expansion, good air entry bilaterally GI/Abdomen: soft, NTND, good bowel sounds, no guarding or rebound /Bladder: no suprapubic tenderness, no CVA or paraspinal tenderness Breast: left breast slightly swollen compared to right, she has a left nipple ring with tracking erythema, entire left breast is exquisitely tender even under the axilla, no discrete masses palpable but she wound not allow deep palpation or thorough exam (Ms. Gilman, RN as tobacco packing machine operator) EXT/Skin: no c/c/e, no obvious rash MSK: FROM x 4 Neuro: CN 2-12 grossly intact, no new focal deficits Psych: calm, but very rude and argumentative - Constitutional Vitals: Temp Pulse Resp BP Pulse Ox 99.7 F H 85 16 94/55 100 03/26/18 05:26 03/26/18 05:26 03/26/18 05:26 03/26/18 05:26 03/26/18 05:26 General appearance: Present: no acute distress, other (patient was having chills ) Results - Labs CBC & Chem 7: 03/26/18 06:13 03/26/18 06:13 Labs: Laboratory Last Values WBC 5.3 K/mm3 (4.5-11.0) 03/26/18 06:13 RBC 3.54 M/mm3 (3.65-5.03) L 03/26/18 06:13 Hgb 9.7 gm/dl (10.1-14.3) L 03/26/18 06:13 Hct 29.7 % (30.3-42.9) L D 03/26/18 06:13 MCV 84 fl (79-97) 03/26/18 06:13 MCH 28 pg (28-32) 03/26/18 06:13 MCHC 33 % (30-34) 03/26/18 06:13 RDW 15.6 % (13.2-15.2) H 03/26/18 06:13 Plt Count 53 K/mm3 (140-440) L 03/26/18 06:13 Lymph % (Auto) 13.2 % (13.4-35.0) L 03/26/18 06:13 [place] % (Auto) 10.6 % (0.0-7.3) H 03/26/18 06:13 Eos % (Auto) 1.2 % (0.0-4.3) 03/26/18 06:13 Baso % (Auto) 0.3 % (0.0-1.8) 03/26/18 06:13 Lymph # 0.7 K/mm3 (1.2-5.4) L 03/26/18 06:13 [place] # 0.6 K/mm3 (0.0-0.8) 03/26/18 06:13 Eos # 0.1 K/mm3 (0.0-0.4) 03/26/18 06:13 Baso # 0.0 K/mm3 (0.0-0.1) 03/26/18 06:13 Seg Neutrophils % 74.7 % (40.0-70.0) H 03/26/18 06:13 Seg Neutrophils # 4.0 K/mm3 (1.8-7.7) 03/26/18 06:13 PT 13.3 Sec. (12.2-14.9) 03/25/18 00:58 INR 0.96 (0.87-1.13) 03/25/18 00:58 VBG pH 7.351 (7.320-7.420) 03/25/18 00:58 Sodium 136 mmol/L (137-145) L 03/26/18 06:13 Potassium 3.8 mmol/L (3.6-5.0) 03/26/18 06:13 Chloride 106.6 mmol/L (98-107) 03/26/18 06:13 Carbon Dioxide 21 mmol/L (22-30) L 03/26/18 06:13 Anion Gap 12 mmol/L 03/26/18 06:13 BUN 4 mg/dL (7-17) L 03/26/18 06:13 Creatinine 0.4 mg/dL (0.7-1.2) L D 03/26/18 06:13 Estimated GFR > 60 ml/min 03/26/18 06:13 BUN/Creatinine Ratio 10 % 03/26/18 06:13 Glucose 298 mg/dL (65-100) H 03/26/18 06:13 POC Glucose 403 (70-105) H 03/25/18 20:46 Lactic Acid 1.90 mmol/L (0.7-2.0) 03/25/18 15:47 Calcium 7.6 mg/dL (8.4-10.2) L D 03/26/18 06:13 Total Bilirubin 2.10 mg/dL (0.1-1.2) H 03/26/18 06:13 AST 50 units/L (5-40) H 03/26/18 06:13 ALT 51 units/L (7-56) 03/26/18 06:13 Alkaline Phosphatase 249 units/L (35-129) H 03/26/18 06:13 Ammonia 30.0 umol/L (25-60) 03/25/18 03:27 Troponin T < 0.010 ng/mL (0.00-0.029) 03/25/18 06:07 Total Protein 6.2 g/dL (6.3-8.2) L D 03/26/18 06:13 Albumin 2.5 g/dL (3.9-5) L 03/26/18 06:13 Albumin/Globulin Ratio 0.7 % 03/26/18 06:13 HCG, Qual Negative (Negative) 03/25/18 00:58 Urine Color Yellow (Yellow) 03/25/18 05:00 Urine Turbidity Slightly-cloudy (Clear) 03/25/18 05:00 Urine pH 5.0 (5.0-7.0) 03/25/18 05:00 Ur Specific [place] 1.033 (1.003-1.030) H 03/25/18 05:00 Urine Protein 30 mg/dl mg/dL (Negative) 03/25/18 05:00 Urine Glucose (UA) >=500 mg/dL (Negative) 03/25/18 05:00 Urine Ketones 20 mg/dL (Negative) 03/25/18 05:00 Urine Blood Sm (Negative) 03/25/18 05:00 Urine Nitrite Neg (Negative) 03/25/18 05:00 Urine Bilirubin Neg (Negative) 03/25/18 05:00 Urine Urobilinogen < 2.0 mg/dL (<2.0) 03/25/18 05:00 Ur Leukocyte Esterase Neg (Negative) 03/25/18 05:00 Urine WBC (Auto) 3.0 /HPF (0.0-6.0) 03/25/18 05:00 Urine RBC (Auto) 1.0 /HPF (0.0-6.0) 03/25/18 05:00 U Epithel Cells (Auto) 1.0 /HPF (0-13.0) 03/25/18 05:00 Urine Bacteria (Auto) 2+ /HPF (Negative) 03/25/18 05:00 Urine Mucus Few /HPF 03/25/18 05:00
[2018-03-26] MEDS ORDERED: VANCOMYCIN PHARMACY TO DOSE IV SCH (13:00)
--- NOTE | 2018-03-26 15:27 | Ultrasound Report ---
FINAL REPORT EXAM: US LT BREAST CLINICAL INDICATIONS: LT BREAST PAIN FINDINGS: Real-time ultrasound of the left breast was performed. No mass or fluid collection is identified. There is no ultrasound evidence of breast abscess. IMPRESSION: NO MASS OR FLUID COLLECTION IS SEEN IN THE LEFT BREAST
[2018-03-26] MEDS: VANCOMYCIN VIAL 1,500 MG in NACL 0.9% 500 ML 500 ML IV SCH ×2 (15:56→22:49)
[2018-03-26] MEDS: MOTRIN PO PRN (22:50)
[2018-03-27] MEDS: VANCOMYCIN VIAL 1,500 MG in NACL 0.9% 500 ML 500 ML IV SCH ×3 (05:23→21:53)
[2018-03-27] MEDS: FLAGYL 500 MG/100 ML 500 MG/100 ML BAG IV SCH ×3 (05:23→21:53)
[2018-03-27] MEDS: PROTONIX PO SCH ×2 (09:58→21:53)
[2018-03-27] MEDS: LEVAQUIN 750MG/150ML 750 MG/150 ML BAG IV SCH (09:59)
[2018-03-27] MEDS: HumaLOG SUB-Q SCH ×4 (09:59→21:54)
[2018-03-27] MEDS: NACL 0.9% 1000 ML 1,000 ML IV SCH (10:00)
[2018-03-27] MEDS: SODIUM CHLORIDE FLUSH SYRINGE 10 ML IV SCH ×2 (10:01→21:54)
[2018-03-27] MEDS ORDERED: PERCOCET 5/325 PO PRN (11:06)
--- NOTE | 2018-03-27 11:26 | Progress Note ---
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 * CT abd/pelvis with IV contrast IMPRESSION: Hepatomegaly with cirrhosis. Splenomegaly. Extensive varices in the left side of the abdomen. Dilatation of the proximal duodenum. Underlying duodenitis cannot be excluded. Gallbladder not identified. * pCXR reported as no acute cardiopulmonary process Sepsis with GNR UTI and left breast cellulitis: continue levaquin for uti and iv vancomycin for left breast cellulitis Left breast infection vs Mastitis vs other due to Nipple ring (pt admantly refutes that the nipple ring has anything to do with the issue, no right nipple present): I advised the patient to remove the nipple ring. DM1 with hyperglycemia: IV fluid, Lantus and SSI, check hemoglobin A1c level Cirrhosis of the liver with extensive varices per imaging: consulted GI Tobacco dependency: litigation counsel on stopping, offered nicotine patch, she will consider GERD On famotidine Biliary atresia, possible Cholangitis: treat with Levaquin+flagyl (started on and GI recommends 10 days coarse) per GI DVT prophylaxis with SCD due to high risk for bleed and GI prophylaxis with famotidine Medical non-compliance with Noncompliant with diabetic diet and f/u with Liver transplant center: litigation counsel on compliance Daily Marijuana usage: counselling done The persistent fever maybe related to Left breast pains, which appears to be Mastitis/cellulitis, no abscess per left breast u/s, consulted Breast Surgeon, I advised patient to remove the nipple ring. I also advised patient to bring a sports bra from home. I will add iv Vancomycin to cover staph aureus, Breast ultrasound negative for abscess. Await Breast surgeon evaluation Disposition: continue inpatient care, await urine culture which is growing GNR, await Breast surgeon evaluation History Interval history: Patient was seen and examined. Follow-up on current diagnosis of fevers, still present. Overnight uneventful. Patient denies any chest pain, shortness breath, nausea/vomiting or severe headaches. Imaging, nursing note, chart, labs and old chart reviewed. Discussed with patient. It appears she was upset by something Dr. Mayen told her. Hospitalist Physical - Physical exam Narrative exam: GEN: WDWN, NAD, Awake, Alert, Orientated x 3 HEENT: NCAT, EOMI, PERRL, OP Clear NECK: supple, no adenopathy, no thyromegaly, no JVD CVS/HEART: RRR, normal S1S2, pulses present bilaterally CHEST/LUNGS: CTA B, Symmetrical chest expansion, good air entry bilaterally GI/Abdomen: soft, NTND, good bowel sounds, no guarding or rebound /Bladder: no suprapubic tenderness, no CVA or paraspinal tenderness Breast: left breast slightly swollen compared to right, she has a left nipple ring with tracking erythema, entire left breast is exquisitely tender even under the axilla, no discrete masses palpable but she wound not allow deep palpation or thorough exam (Ms. Gilman, RN as loading dock helper) EXT/Skin: no c/c/e, no obvious rash MSK: FROM x 4 Neuro: CN 2-12 grossly intact, no new focal deficits Psych: calm, but very rude and argumentative - Constitutional Vitals: Temp Pulse Resp BP Pulse Ox 98.2 F 84 18 114/78 96 03/26/18 23:10 03/26/18 23:10 03/26/18 23:50 03/26/18 23:10 03/26/18 23:10 General appearance: Present: no acute distress, other (patient was having chills ) Results - Labs CBC & Chem 7: 03/26/18 06:13 03/26/18 06:13 Labs: Laboratory Last Values WBC 5.3 K/mm3 (4.5-11.0) 03/26/18 06:13 RBC 3.54 M/mm3 (3.65-5.03) L 03/26/18 06:13 Hgb 9.7 gm/dl (10.1-14.3) L 03/26/18 06:13 Hct 29.7 % (30.3-42.9) L D 03/26/18 06:13 MCV 84 fl (79-97) 03/26/18 06:13 MCH 28 pg (28-32) 03/26/18 06:13 MCHC 33 % (30-34) 03/26/18 06:13 RDW 15.6 % (13.2-15.2) H 03/26/18 06:13 Plt Count 53 K/mm3 (140-440) L 03/26/18 06:13 Lymph % (Auto) 13.2 % (13.4-35.0) L 03/26/18 06:13 [place] % (Auto) 10.6 % (0.0-7.3) H 03/26/18 06:13 Eos % (Auto) 1.2 % (0.0-4.3) 03/26/18 06:13 Baso % (Auto) 0.3 % (0.0-1.8) 03/26/18 06:13 Lymph # 0.7 K/mm3 (1.2-5.4) L 03/26/18 06:13 [place] # 0.6 K/mm3 (0.0-0.8) 03/26/18 06:13 Eos # 0.1 K/mm3 (0.0-0.4) 03/26/18 06:13 Baso # 0.0 K/mm3 (0.0-0.1) 03/26/18 06:13 Seg Neutrophils % 74.7 % (40.0-70.0) H 03/26/18 06:13 Seg Neutrophils # 4.0 K/mm3 (1.8-7.7) 03/26/18 06:13 PT 13.3 Sec. (12.2-14.9) 03/25/18 00:58 INR 0.96 (0.87-1.13) 03/25/18 00:58 VBG pH 7.351 (7.320-7.420) 03/25/18 00:58 Sodium 136 mmol/L (137-145) L 03/26/18 06:13 Potassium 3.8 mmol/L (3.6-5.0) 03/26/18 06:13 Chloride 106.6 mmol/L (98-107) 03/26/18 06:13 Carbon Dioxide 21 mmol/L (22-30) L 03/26/18 06:13 Anion Gap 12 mmol/L 03/26/18 06:13 BUN 4 mg/dL (7-17) L 03/26/18 06:13 Creatinine 0.4 mg/dL (0.7-1.2) L D 03/26/18 06:13 Estimated GFR > 60 ml/min 03/26/18 06:13 BUN/Creatinine Ratio 10 % 03/26/18 06:13 Glucose 298 mg/dL (65-100) H 03/26/18 06:13 POC Glucose 230 (70-105) H 03/27/18 09:07 Lactic Acid 1.90 mmol/L (0.7-2.0) 03/25/18 15:47 Calcium 7.6 mg/dL (8.4-10.2) L D 03/26/18 06:13 Total Bilirubin 2.10 mg/dL (0.1-1.2) H 03/26/18 06:13 AST 50 units/L (5-40) H 03/26/18 06:13 ALT 51 units/L (7-56) 03/26/18 06:13 Alkaline Phosphatase 249 units/L (35-129) H 03/26/18 06:13 Ammonia 30.0 umol/L (25-60) 03/25/18 03:27 Troponin T < 0.010 ng/mL (0.00-0.029) 03/25/18 06:07 Total Protein 6.2 g/dL (6.3-8.2) L D 03/26/18 06:13 Albumin 2.5 g/dL (3.9-5) L 03/26/18 06:13 Albumin/Globulin Ratio 0.7 % 03/26/18 06:13 HCG, Qual Negative (Negative) 03/25/18 00:58 Urine Color Yellow (Yellow) 03/25/18 05:00 Urine Turbidity Slightly-cloudy (Clear) 03/25/18 05:00 Urine pH 5.0 (5.0-7.0) 03/25/18 05:00 Ur Specific [place] 1.033 (1.003-1.030) H 03/25/18 05:00 Urine Protein 30 mg/dl mg/dL (Negative) 03/25/18 05:00 Urine Glucose (UA) >=500 mg/dL (Negative) 03/25/18 05:00 Urine Ketones 20 mg/dL (Negative) 03/25/18 05:00 Urine Blood Sm (Negative) 03/25/18 05:00 Urine Nitrite Neg (Negative) 03/25/18 05:00 Urine Bilirubin Neg (Negative) 03/25/18 05:00 Urine Urobilinogen < 2.0 mg/dL (<2.0) 03/25/18 05:00 Ur Leukocyte Esterase Neg (Negative) 03/25/18 05:00 Urine WBC (Auto) 3.0 /HPF (0.0-6.0) 03/25/18 05:00 Urine RBC (Auto) 1.0 /HPF (0.0-6.0) 03/25/18 05:00 U Epithel Cells (Auto) 1.0 /HPF (0-13.0) 03/25/18 05:00 Urine Bacteria (Auto) 2+ /HPF (Negative) 03/25/18 05:00 Urine Mucus Few /HPF 03/25/18 05:00
[2018-03-27] MEDS: ZOFRAN IV PRN ×3 (12:00→19:30)
--- NOTE | 2018-03-27 12:20 | Consultation ---
History of Present Illness Consult date: 03/27/18 Reason for consult: other (Left breast cellulitis) Requesting physician: DAVID RANDHAWA Chief complaint: Left breast cellulitis - History of present illness History of present illness: This is a 27 year old premenopausal lady recently admitted for left breast cellulitis. Patient reports left breast pain for the past 2-4 days. Recent left breast ultrasound with no fluid collection or abscess. She had bilateral nipple piercing recent performed. No history of having a mammogram and she denies a family history of breast, ovarian, prostate and colon cancer. She's being treated for UTI as well. She has a history of undergoing a Kasai as an , she has been evaluated by GI with findings of biliary cirrhosis. Past History Past Medical History: diabetes (type 1), GERD, other (biliary atresia, cirrhosis , medical noncompliance) Past Surgical History: Other (kasai procedure) Social history: smoking (5 years history of cigarette smoking. She smokes marijuana daily but denies alcohol or other illicit drug use), other (daily MJ abuse) Family history: diabetes Medications and Allergies Allergies Allergy/AdvReac Type Severity Reaction Status Date / Time ceftriaxone [From Rocephin] Allergy Itching Verified 03/25/18 00:33 Active Meds: Active Medications Levofloxacin/Dextrose (Levaquin 750mg/150ml) 750 mg in 150 mls @ 100 mls/hr IV Q24HR ANGELINA; Protocol Last Admin: 03/27/18 09:59 Dose: 100 mls/hr Metronidazole (Flagyl 500 Mg/100 Ml) 500 mg in 100 mls @ 100 mls/hr IV Q8HR ANGELINA ; Protocol Last Admin: 03/27/18 05:23 Dose: 100 mls/hr Sodium Chloride (Nacl 0.9% 1000 Ml) 1,000 mls @ 125 mls/hr IV DIRECT ANGELINA Last Admin: 03/27/18 10:00 Dose: 125 mls/hr Vancomycin HCl 1,500 mg/ (Sodium Chloride) 500 mls @ 333.333 mls/hr IV Q8H ANGELINA Last Admin: 03/27/18 05:23 Dose: 333.333 mls/hr Ibuprofen (Motrin) 600 mg PO Q8H PRN PRN Reason: Non Cardiac Pain or Temp>100.5 Last Admin: 03/26/18 22:50 Dose: 600 mg Insulin Glargine (Lantus) 20 units SUB-Q QHS [facility] Insulin Human Lispro (Humalog) 0 unit SUB-Q ACHS [facility]; Protocol Last Admin: 03/27/18 09:59 Dose: 3 unit Morphine Sulfate (Morphine) 1 mg IV Q6H PRN PRN Reason: Pain, Moderate (4-6) if NPO Last Admin: 03/26/18 21:00 Dose: 1 mg Ondansetron HCl (Zofran) 4 mg IV Q4H PRN PRN Reason: Nausea And Vomiting Last Admin: 03/27/18 12:00 Dose: 4 mg Oxycodone HCl (Roxicodone) 10 mg PO Q4H PRN PRN Reason: Pain , Severe (7-10) Pantoprazole Sodium (Protonix) 40 mg PO BID [facility] Last Admin: 03/27/18 09:58 Dose: 40 mg Sodium Chloride (Sodium Chloride Flush Syringe 10 Ml) 10 ml IV BID [facility] Last Admin: 03/27/18 10:01 Dose: 10 ml Sodium Chloride (Sodium Chloride Flush Syringe 10 Ml) 10 ml IV PRN PRN PRN Reason: LINE FLUSH Zolpidem Tartrate (Ambien) 5 mg PO QHS PRN PRN Reason: Insomnia Last Admin: 03/26/18 22:47 Dose: 5 mg Review of Systems All systems: negative - Breasts other (left breast pain and swelling) Exam Vital Signs Temp Pulse Resp BP Pulse Ox 102.2 F H 102 H 16 81/41 97 03/25/18 00:03 03/25/18 00:03 03/25/18 00:03 03/25/18 00:03 03/25/18 00:03 - General physical appearance Positive: well developed, well nourished, no distress - Eyes Positive: PERRL - ENT Positive: normal pinna, normal nares, normal mucosa, no hearing loss, no congestion - Neck Positive: no masses, no bruits, trachea midline, no lymphadectomy, no venous distension - Respiratory Positive: normal expansion - Cardiovascular Rhythm: regular - Extremities Extremities: no ischemia, No edema, normal temperature, normal color, Full ROM - Breasts Breasts: other (left breast mild erythema from the 10-2:00 position, tenderness noted at the 12:00 position 4-5 cm from the nipple with palpable tender thickening/asymmetry-probable for cellulitis; skin intact, nipple piercing) - Abdomen Abdomen: Present: soft - Genitourinary Female Genitourinary: deferred - Neurologic Neurologic: other (agitated, angry-was on phone with family member) - Psychiatric Psychiatric: appropriate mood/affect, intact judgment & insight, memory intact, agitated Results - Labs 03/26/18 06:13 03/26/18 06:13 Abnormal lab results 03/26/18 03/26/18 03/26/18 Range/Units 07:35 11:45 17:23 POC Glucose 284 H 254 H 261 H (70-105) 03/26/18 03/27/18 Range/Units 21:30 09:07 POC Glucose 239 H 230 H (70-105) Assessment and Plan This is a 27 year old lady with left breast cellulitis. Physical exam with probable cellulitis, recent ultrasound with no fluid collection, no abscess. Recommend cont with antibiotics and warm compresses to the left breast. Recommend removing nipple piercing-discussed with patient and she stated she will try to remove. Follow-up breast ultrasound may be need if patient's pain continues. Will follow with you and at discharge she needs outpatient follow-up with me. Thank you for this consult, call with questions/concerns at [phone]. - Patient Problems (1) Cellulitis Current Visit: Yes Status: Acute (2) Fever Current Visit: Yes Status: Acute
--- NOTE | 2018-03-27 14:47 | Gastroenterology Progress Note ---
Assessment and Plan 1.abnormal CT of the abdomen -dilated loop of duodenum/abnormal appearance is normal after Kasai procedure -tolerating regular diet w/o vomiting to suggest outlet obstruction 2.biliary atresia -cirrhosis with biliary atresia/s-p Kasai -no ascites or encephalopahty -varices on CT but no hx of GI bleeding -WBC WNL; fever most likely 2/2 cellulitis of breast -would continue abx x 10 days for empiric tx of cholangitis -continue supportive care -recommend follow up with liver transplant center at [place] upon d/c -no further GI recommendations at this time -will sign off, please call if needed 3.fever -no ascites to suggest SBP -abdomen benign with no worrisome findings on CT -recommendations as above 4.medical non-compliance -noncompliant with diabetic diet or with insulin -noncompliant with f/u with liver transplant center -daily tobacco and MJ Subjective Date of service: 03/27/18 Principal diagnosis: Fever, cirrhosis Interval history: No acute distress. Objective - Constitutional Vitals: Temp Pulse Resp BP Pulse Ox 100.0 F H 83 20 120/83 96 03/27/18 11:58 03/27/18 11:58 03/27/18 11:58 03/27/18 11:58 03/27/18 11:58 General appearance: no acute distress - Respiratory Respiratory: bilateral: CTA - Cardiovascular Rhythm: regular Heart Sounds: Present: S1 & S2 - Gastrointestinal General gastrointestinal: Present: soft, tender (mild generalized TTP), non- distended, normal bowel sounds - Labs CBC & Chem 7: 03/26/18 06:13 03/26/18 06:13 Labs: Laboratory Results - last 24 hr 03/26/18 03/26/18 03/26/18 07:35 11:45 17:23 POC Glucose 284 H 254 H 261 H 03/26/18 03/27/18 03/27/18 21:30 09:07 12:04 POC Glucose 239 H 230 H 213 H
[2018-03-27] MEDS: ROXICODONE PO PRN (14:56)
[2018-03-27] MEDS: LANTUS SUB-Q SCH (21:53)
[2018-03-27] MEDS: MOTRIN PO PRN (22:14)
[2018-03-28] MEDS: ROXICODONE PO PRN ×2 (01:01→23:05)
[2018-03-28] MEDS: ZOFRAN IV PRN ×4 (01:02→23:05)
[2018-03-28] MEDS: FLAGYL 500 MG/100 ML 500 MG/100 ML BAG IV SCH (05:51)
[2018-03-28] MEDS: VANCOMYCIN VIAL 1,500 MG in NACL 0.9% 500 ML 500 ML IV SCH (05:52)
[2018-03-28] MEDS: HumaLOG SUB-Q SCH ×4 (07:30→22:52)
[2018-03-28] MEDS: PROTONIX PO SCH ×2 (09:20→22:52)
[2018-03-28] MEDS: LEVAQUIN 750MG/150ML 750 MG/150 ML BAG IV SCH (09:21)
[2018-03-28] MEDS: SODIUM CHLORIDE FLUSH SYRINGE 10 ML IV SCH ×2 (09:21→22:54)
[2018-03-28] MEDS ORDERED: NACL 0.9% 1000 ML 1,000 ML IV SCH (13:00)
--- NOTE | 2018-03-28 17:00 | Progress Note ---
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 * CT abd/pelvis with IV contrast IMPRESSION: Hepatomegaly with cirrhosis. Splenomegaly. Extensive varices in the left side of the abdomen. Dilatation of the proximal duodenum. Underlying duodenitis cannot be excluded. Gallbladder not identified. * pCXR reported as no acute cardiopulmonary process * , Breast ultrasound negative for abscess Sepsis with GNR UTI and left breast cellulitis: continue levaquin for klebsiella uti, has not been tolerating flagyl, will do a trial of unaysn, Watch for cross reactivity given hx of rocephin allergy Left breast infection vs Mastitis vs other due to Nipple ring (pt admantly refutes that the nipple ring has anything to do with the issue, no right nipple present): patient has now removed nipple right DM1 with hyperglycemia: IV fluid, Lantus and SSI, dilated loop of duodenum/abnormal appearance is normal after Kasai procedure, hx of biliary atresia in childhood- no acute gi issues, GI has signed off Tobacco dependency: assistant counsel on stopping, offered nicotine patch, she will consider GERD On famotidine Biliary atresia, cholangitis ruled out DVT prophylaxis with SCD due to high risk for bleed and GI prophylaxis with famotidine Medical non-compliance with Noncompliant with diabetic diet and f/u with Liver transplant center: counseled on compliance Daily Marijuana usage: counselling done patient has been nauseas on flagyl. will dc levaquin and flagyl, start on unasyn and plan to dc tomorrow on augmentin History Interval history: Continues to complain of left breast redness and tenderness Review of systems Constitutional: No fevers, no malaise, no joint pains CVS: No chest pain, no orthopnea, no dyspnea on exertion, no pedal edema GI: No abdominal pain, no diarrhea, no vomiting, no constipation Respiratory: No shortness of breath, no wheezing, no coughing Hospitalist Physical - Physical exam Narrative exam: General.: Appears well, no distress, nontoxic HEENT: Moist mucous membranes, extraocular muscles intact, no lymphadenopathy Neck: supple Cardiac: S1-S2 heard Lungs: clear to auscultation bilaterally Abdomen: soft , nontender, nondistended, bowel sounds positive Extremities: no edema clubbing or cyanosis Skin: periareola erythema, tenderness and edema of left breast Neurologic: no gross focal deficits Psych: appropriate behavior, appropriate mood, corporative, judgment intact, child like behavior - Constitutional Vitals: Temp Pulse Resp BP Pulse Ox 98.5 F 76 16 113/78 94 03/28/18 11:48 03/28/18 11:48 03/28/18 11:48 03/28/18 11:48 03/28/18 11:48 General appearance: Present: no acute distress, other (patient was having chills ) Results - Labs CBC & Chem 7: 03/26/18 06:13 03/26/18 06:13 Labs: Laboratory Last Values WBC 5.3 K/mm3 (4.5-11.0) 03/26/18 06:13 RBC 3.54 M/mm3 (3.65-5.03) L 03/26/18 06:13 Hgb 9.7 gm/dl (10.1-14.3) L 03/26/18 06:13 Hct 29.7 % (30.3-42.9) L D 03/26/18 06:13 MCV 84 fl (79-97) 03/26/18 06:13 MCH 28 pg (28-32) 03/26/18 06:13 MCHC 33 % (30-34) 03/26/18 06:13 RDW 15.6 % (13.2-15.2) H 03/26/18 06:13 Plt Count 53 K/mm3 (140-440) L 03/26/18 06:13 Lymph % (Auto) 13.2 % (13.4-35.0) L 03/26/18 06:13 [place] % (Auto) 10.6 % (0.0-7.3) H 03/26/18 06:13 Eos % (Auto) 1.2 % (0.0-4.3) 03/26/18 06:13 Baso % (Auto) 0.3 % (0.0-1.8) 03/26/18 06:13 Lymph # 0.7 K/mm3 (1.2-5.4) L 03/26/18 06:13 Garden # 0.6 K/mm3 (0.0-0.8) 03/26/18 06:13 Eos # 0.1 K/mm3 (0.0-0.4) 03/26/18 06:13 Baso # 0.0 K/mm3 (0.0-0.1) 03/26/18 06:13 Seg Neutrophils % 74.7 % (40.0-70.0) H 03/26/18 06:13 Seg Neutrophils # 4.0 K/mm3 (1.8-7.7) 03/26/18 06:13 PT 13.3 Sec. (12.2-14.9) 03/25/18 00:58 INR 0.96 (0.87-1.13) 03/25/18 00:58 VBG pH 7.351 (7.320-7.420) 03/25/18 00:58 Sodium 136 mmol/L (137-145) L 03/26/18 06:13 Potassium 3.8 mmol/L (3.6-5.0) 03/26/18 06:13 Chloride 106.6 mmol/L (98-107) 03/26/18 06:13 Carbon Dioxide 21 mmol/L (22-30) L 03/26/18 06:13 Anion Gap 12 mmol/L 03/26/18 06:13 BUN 4 mg/dL (7-17) L 03/26/18 06:13 Creatinine 0.4 mg/dL (0.7-1.2) L D 03/26/18 06:13 Estimated GFR > 60 ml/min 03/26/18 06:13 BUN/Creatinine Ratio 10 % 03/26/18 06:13 Glucose 298 mg/dL (65-100) H 03/26/18 06:13 POC Glucose 241 (70-105) H 03/28/18 11:46 Lactic Acid 1.90 mmol/L (0.7-2.0) 03/25/18 15:47 Calcium 7.6 mg/dL (8.4-10.2) L D 03/26/18 06:13 Total Bilirubin 2.10 mg/dL (0.1-1.2) H 03/26/18 06:13 AST 50 units/L (5-40) H 03/26/18 06:13 ALT 51 units/L (7-56) 03/26/18 06:13 Alkaline Phosphatase 249 units/L (35-129) H 03/26/18 06:13 Ammonia 30.0 umol/L (25-60) 03/25/18 03:27 Troponin T < 0.010 ng/mL (0.00-0.029) 03/25/18 06:07 Total Protein 6.2 g/dL (6.3-8.2) L D 03/26/18 06:13 Albumin 2.5 g/dL (3.9-5) L 03/26/18 06:13 Albumin/Globulin Ratio 0.7 % 03/26/18 06:13 HCG, Qual Negative (Negative) 03/25/18 00:58 Urine Color Yellow (Yellow) 03/25/18 05:00 Urine Turbidity Slightly-cloudy (Clear) 03/25/18 05:00 Urine pH 5.0 (5.0-7.0) 03/25/18 05:00 Ur Specific [place] 1.033 (1.003-1.030) H 03/25/18 05:00 Urine Protein 30 mg/dl mg/dL (Negative) 03/25/18 05:00 Urine Glucose (UA) >=500 mg/dL (Negative) 03/25/18 05:00 Urine Ketones 20 mg/dL (Negative) 03/25/18 05:00 Urine Blood Sm (Negative) 03/25/18 05:00 Urine Nitrite Neg (Negative) 03/25/18 05:00 Urine Bilirubin Neg (Negative) 03/25/18 05:00 Urine Urobilinogen < 2.0 mg/dL (<2.0) 03/25/18 05:00 Ur Leukocyte Esterase Neg (Negative) 03/25/18 05:00 Urine WBC (Auto) 3.0 /HPF (0.0-6.0) 03/25/18 05:00 Urine RBC (Auto) 1.0 /HPF (0.0-6.0) 03/25/18 05:00 U Epithel Cells (Auto) 1.0 /HPF (0-13.0) 03/25/18 05:00 Urine Bacteria (Auto) 2+ /HPF (Negative) 03/25/18 05:00 Urine Mucus Few /HPF 03/25/18 05:00 Vancomycin Trough 22.3 ug/mL (5.0-20.0) H 03/27/18 13:31
[2018-03-28] MEDS: FLAGYL PO SCH ×2 (17:08→22:52)
[2018-03-28] MEDS: UNASYN/NS 3 GM/100 ML 3 GM/100 ML BAG IV SCH ×2 (19:26→23:05)
[2018-03-28] MEDS ORDERED: VANCOMYCIN/NS 1 GM/250 ML 1 GM/250 ML BAG IV SCH (22:00)
[2018-03-28] MEDS: LANTUS SUB-Q SCH (22:53)
[2018-03-29] MEDS: MOTRIN PO PRN (01:09)
[2018-03-29 02:57] LABS: Hematocrit 31.9 % (30.3-42.9); Hemoglobin 10.6 gm/dl (10.1-14.3); Mean Corpuscular HGB Conc 33 % (30-34); Mean Corpuscular Hemoglobin 28 pg (28-32); Mean Corpuscular Volume 83 fl (79-97); Red Blood Count 3.82 M/mm3 (3.65-5.03); Red Cell Distribution Width 15.6 % (13.2-15.2)
[2018-03-29 03:03] LABS: Platelet Count 98 K/mm3 (140-440)
[2018-03-29] MEDS: UNASYN/NS 3 GM/100 ML 3 GM/100 ML BAG IV SCH (06:30)
[2018-03-29] MEDS: FLAGYL PO SCH (06:32)
[2018-03-29] MEDS ORDERED: LEVAQUIN PO SCH (10:00)
[2018-03-29 12:26] VITALS: BP 89/47
--- NOTE | 2018-03-29 18:22 | Discharge Summary ---
Providers - Providers Date of Admission: 03/25/18 07:52 Attending physician: JAMEE BURRIS MD 03/25/18 08:31 Consult to Physician [CONS] Routine Comment: Consulting Provider: JOBY CHUNG Physician Instructions: Reason For Exam: cirrhosis management 03/26/18 19:42 Consult to Physician [CONS] Routine Comment: Consulting Provider: KARLA ALBRECHT Physician Instructions: I already notified, just add to her list Reason For Exam: Evaluate for left breast infection Primary care physician: RIVER PILOT Hospitalization Condition: Stable Disposition: DC-07 LEFT AGAINST MED ADVICE Core Measure Documentation - Palliative Care Palliative Care/ Comfort Measures: Not Applicable Exam - Constitutional Vitals: Temp Pulse Resp BP Pulse Ox 97.9 F 75 16 89/47 97 03/29/18 12:20 03/29/18 12:20 03/29/18 12:20 03/29/18 12:20 03/29/18 12:20 Plan Follow up with: PRIMARY CAREMD [Primary Care Provider] - 7 Days Prescriptions: Insulin Glargine [Lantus VIAL] 20 units SUB-Q QHS #1 vial levoFLOXacin [Levaquin TAB] 750 mg PO DAILY #7 tablet metroNIDAZOLE [Flagyl TAB] 500 mg PO Q8HR #20 tablet oxyCODONE [Roxicodone TAB] 10 mg PO Q4H PRN #30 tablet PRN Reason: Pain , Severe (7-10) Pantoprazole [Protonix TAB] 40 mg PO BID #60 tablet
== END 2018-03-29 15:13 | disposition left against medical advice (07) | DRG 871 ==
LOC: ED 23:46 → 3A 03-25 07:52
PROVIDERS: ADMIT Internal Medicine; ATTEND Internal Medicine
DX: A41.9 Sepsis, unspecified organism (principal); Q44.2 Atresia of bile ducts; I85.00 Esophageal varices without bleeding; N39.0 Urinary tract infection, site not specified; K74.60 Unspecified cirrhosis of liver; B96.1 Klebsiella pneumoniae [K. pneumoniae] as the cause of diseases classified elsewhere; K59.8 Other specified functional intestinal disorders; K21.9 Gastro-esophageal reflux disease without esophagitis; F17.210 Nicotine dependence, cigarettes, uncomplicated; F12.90 Cannabis use, unspecified, uncomplicated; R65.20 Severe sepsis without septic shock; E10.65 Type 1 diabetes mellitus with hyperglycemia; Z53.21 Procedure and treatment not carried out due to patient leaving prior to being seen by health care provider; N61.0 Mastitis without abscess; D69.6 Thrombocytopenia, unspecified; R16.2 Hepatomegaly with splenomegaly, not elsewhere classified; Z71.51 Drug abuse counseling and surveillance of drug abuser; Z71.6 Tobacco abuse counseling; Z83.3 Family history of diabetes mellitus; Z88.8 Allergy status to other drugs, medicaments and biological substances
CPT/HCPCS: 36415; 71045; 74177; 80053; 80202; 81001; 82140; 82805; 82962; 83036; 84484; 84703; 85025; 85027; 85610; 87040; 87076; 87086; 87186; 93005; 93010; 96361; 96365; 96375; 99406; C9113; J0295; J1815; J1956; J2270; J2405; J3370; J7030; J7040; Q9967